=== PATIENT | male | born 1965 | race Caucasian/White ===

== ENCOUNTER 2017-01-23 14:25 | Inpatient (IN) | payer SELFPAY ==
[~2017-01-23] VITALS: Ht 165.1 cm; Wt 62.3 kg
[2017-01-23] MEDS ORDERED: ONDANSETRON HCL 4MG/2ML VIAL IV STA (15:50)
[2017-01-23] MEDS ORDERED: FAMOTIDINE 20MG/2ML VIAL IV ONE (16:00)
[2017-01-23 16:19] LABS: BASOPHILS % 1.1 % (0.0-2.0); DIFFERENTIAL COMMENT 1; EOSINOPHILS % 1.1 % (0.0-5.0); LYMPHOCYTES % 10.8 % (20.0-50.0); MEAN CORPUSCULAR HEMOGLOBIN 18.3 pg (28.0-32.0); MEAN CORPUSCULAR HGB CONC 29.6 g/dL (31.0-37.0); MEAN CORPUSCULAR VOLUME 61.6 fL (80.0-94.0); MEAN PLATELET VOLUME 9.5 fl (7.4-10.4); MONOCYTES % 11.3 % (2.0-8.0); NEUTROPHILS % 75.7 % (40.0-76.0); PLATELET 96 x1000/uL (130-400); RED BLOOD CELL COUNT 1.93 mill/uL (4.7-6.1); RED CELL DISTRIBUTION WIDTH 25.2 % (11.6-14.6)
[2017-01-23 16:21] LABS: ADD RBC MORPHOLOGY YES; HEMATOCRIT. 11.9 % (42.0-52.0); HEMOGLOBIN. 3.5 g/dL (14.0-18.0)
[2017-01-23 16:28] LABS: CLARITY URINE CLEAR (CLEAR); COLOR URINE ORANGE (YELLOW); GLUCOSE URINE NEGATIVE (NEGATIVE); KETONES URINE NEGATIVE (NEGATIVE); LEUKOCYTE ESTERASE URINE NEGATIVE (NEGATIVE); NITRITE URINE NEGATIVE (NEGATIVE); OCCULT BLOOD URINE NEGATIVE (NEGATIVE); PH URINE 7.5 (4.5-8.0); PROTEIN URINE NEGATIVE (NEGATIVE); SPECIFIC GRAVITY URINE 1.012 (1.005-1.030)
[2017-01-23 16:33] LABS: ALANINE AMINOTRANSFERASE 31 IU/L (13-61); ALBUMIN 2.8 g/dL (3.4-5.0); ANION GAP 11; CALCIUM 8.1 mg/dL (8.5-10.1); CARBON DIOXIDE 24 mEq/L (21-32); CHLORIDE 106 mEq/L (98-107); ETHANOL BLOOD < 10 mg/dL; INDEX HEMOLYSI 1 (1-3); INDEX ICTERIC 1 (1-4); INDEX LIPEMIC 1 (1-3); LIPASE 191 IU/L (73-393); UREA NITROGEN BLOOD 14 mg/dL (7-21); eGFR > 60 mL/min (>60)
[2017-01-23 16:47] LABS: ANISOCYTOSIS 3+
[2017-01-23 16:49] LABS: HYPOCHROMASIA 3+; PLATELET ESTIMATE SLIGHTLY DECREASED
[2017-01-23 16:54] LABS: *AMPHETAMINES SCREEN URINE NEGATIVE (NEGATIVE); *BARBITURATES SCREEN URINE NEGATIVE (NEGATIVE); *BENZODIAZEPINES SCREEN URINE NEGATIVE (NEGATIVE); *COCAINE SCREEN URINE NEGATIVE (NEGATIVE); CANNABINOID URINE SCREEN NEGATIVE (NEGATIVE); ECSTASY MDMA SCREEN URINE NEGATIVE (NEGATIVE); METHADONE URINE SCREEN NEGATIVE (NEGATIVE); OPIATES URINE SCREEN NEGATIVE (NEGATIVE); PHENCYCLIDINE URINE SCREEN NEGATIVE (NEGATIVE)
[2017-01-23 20:22] VITALS: BP 135/68
[2017-01-23 20:26] VITALS: BP 135/68
[2017-01-23 22:00] VITALS: BP 128/73
[2017-01-23 22:39] VITALS: BP 128/73
[2017-01-23 22:55] VITALS: BP 122/66
[2017-01-23 23:52] VITALS: BP 126/66
[2017-01-23] MEDS: PANTOPRAZOLE 80 MG in SODIUM CHLORIDE 0.9% 100 ML IV SCH (23:55)
[2017-01-24] VITALS (21 sets, daily range): BP systolic 116–136; BP diastolic 57–78
[2017-01-24 06:59] LABS: HEMATOCRIT 22.1 % (42.0-52.0); MEAN CORPUSCULAR HEMOGLOBIN 22.4 pg (28.0-32.0); MEAN CORPUSCULAR HGB CONC 31.7 g/dL (31.0-37.0); MEAN CORPUSCULAR VOLUME 70.6 fL (80.0-94.0); PLATELET 87 x1000/uL (130-400); RED BLOOD CELL COUNT 3.13 mill/uL (4.7-6.1); RED CELL DISTRIBUTION WIDTH 29.5 % (11.6-14.6); WHITE BLOOD COUNT 8.8 x1000/uL (4.5-11.0)
[2017-01-24 07:48] LABS: ANION GAP 11; CALCIUM 8.4 mg/dL (8.5-10.1); CARBON DIOXIDE 24 mEq/L (21-32); CHLORIDE 106 mEq/L (98-107); INDEX HEMOLYSI 1 (1-3); INDEX ICTERIC 1 (1-4); INDEX LIPEMIC 1 (1-3); UREA NITROGEN BLOOD 10 mg/dL (7-21); eGFR > 60 mL/min (>60)
[2017-01-24] MEDS: PANTOPRAZOLE 80 MG in SODIUM CHLORIDE 0.9% 100 ML IV SCH ×2 (08:17→19:57)
[2017-01-24] MEDS ORDERED: SODIUM CHLORIDE 0.9% 10ML VIAL ONE (11:14)
[2017-01-24] MEDS ORDERED: SIMETHICONE 40 MG/0.6 ML 30ML ONE ×2 (11:14→13:38)
[2017-01-24 11:55] LABS: INDEX HEMOLYSI 1 (1-3); INDEX ICTERIC 1 (1-4); INDEX LIPEMIC 1 (1-3); IRON 23 ug/dL (50-175); TOTAL IRON BINDING CAPACITY 417 ug/dL (250-450)
[2017-01-24] MEDS ORDERED: MIDAZOLAM HCL 5 MG/5 ML VIAL ONE (13:38)
[2017-01-24] MEDS ORDERED: FENTANYL CITRATE/PF 50MCG/ML 2ML VIAL ONE (13:38)
[2017-01-24] MEDS ORDERED: MIDAZOLAM HCL 5 MG/5 ML VIAL IV PRN (14:12)
[2017-01-24] MEDS ORDERED: FENTANYL CITRATE/PF 50MCG/ML 2ML VIAL IV PRN (14:12)
[2017-01-24] MEDS ORDERED: SORBITOL 70% SOLN 30ML PO NR (18:00)
[2017-01-24 18:03] LABS: FOLIC ACID (FOLATE) SERUM 19.8 ng/mL (>5.38)
[2017-01-25] VITALS (19 sets, daily range): BP systolic 101–136; BP diastolic 49–75
[2017-01-25] MEDS: PANTOPRAZOLE 80 MG in SODIUM CHLORIDE 0.9% 100 ML IV SCH (05:52)
[2017-01-25] MEDS ORDERED: SORBITOL 70% SOLN 30ML PO NR (06:00)
[2017-01-25] MEDS ORDERED: PROT40 PO (07:29)
[2017-01-25 08:31] LABS: BASOPHILS % 0.9 % (0.0-2.0); EOSINOPHILS % 2.3 % (0.0-5.0); HEMATOCRIT. 31.4 % (42.0-52.0); LYMPHOCYTES % 7.9 % (20.0-50.0); MEAN CORPUSCULAR HEMOGLOBIN 23.2 pg (28.0-32.0); MEAN CORPUSCULAR HGB CONC 31.2 g/dL (31.0-37.0); MEAN CORPUSCULAR VOLUME 74.2 fL (80.0-94.0); MEAN PLATELET VOLUME 10.2 fl (7.4-10.4); MONOCYTES % 9.2 % (2.0-8.0); NEUTROPHILS % 79.7 % (40.0-76.0); PLATELET 110 x1000/uL (130-400); RED BLOOD CELL COUNT 4.22 mill/uL (4.7-6.1); RED CELL DISTRIBUTION WIDTH 27.2 % (11.6-14.6); WHITE BLOOD COUNT 9.3 x1000/uL (4.5-11.0)
[2017-01-25 08:39] LABS: DIFFERENTIAL COMMENT 1
[2017-01-25 08:40] LABS: ADD RBC MORPHOLOGY YES; HEMOGLOBIN. 9.8 g/dL (14.0-18.0)
[2017-01-25 09:02] LABS: ALANINE AMINOTRANSFERASE 56 IU/L (13-61); ALBUMIN 3.3 g/dL (3.4-5.0); ANION GAP 14; CALCIUM 8.6 mg/dL (8.5-10.1); CARBON DIOXIDE 25 mEq/L (21-32); CHLORIDE 104 mEq/L (98-107); INDEX HEMOLYSI 1 (1-3); INDEX ICTERIC 1 (1-4); INDEX LIPEMIC 1 (1-3); UREA NITROGEN BLOOD 10 mg/dL (7-21); eGFR > 60 mL/min (>60)
[2017-01-25 13:08] LABS: ANISOCYTOSIS 2+; GIANT PLATELETS 1+; HYPOCHROMASIA 1+; PLATELET ESTIMATE SLIGHTLY DECREASED
[2017-01-25] MEDS ORDERED: SODIUM CHLORIDE 0.9% 10ML VIAL ONE (14:48)
[2017-01-25] MEDS ORDERED: FENTANYL CITRATE/PF 50MCG/ML 2ML VIAL ONE (15:02)
[2017-01-25] MEDS ORDERED: SIMETHICONE 40 MG/0.6 ML 30ML ONE (15:02)
[2017-01-25] MEDS ORDERED: MIDAZOLAM HCL 5 MG/5 ML VIAL ONE (15:03)
[2017-01-25] MEDS ORDERED: MIDAZOLAM HCL 5 MG/5 ML VIAL IV PRN (15:21)
[2017-01-25] MEDS ORDERED: FENTANYL CITRATE/PF 50MCG/ML 2ML VIAL IV PRN (15:21)
[2017-01-26] VITALS: BP 119/62
[2017-01-26 00:03] VITALS: BP_SYST 101; BP_SYST 144; BP_DIAS 66; BP_DIAS 89
[2017-01-26 02:00] VITALS: BP 154/70
[2017-01-26 04:00] VITALS: BP 144/89
== END 2017-01-26 04:00 | disposition home or self-care (01) | DRG 253 ==
LOC: ER 15:28 → 3WST 17:27
PROVIDERS: ADMIT Family Medicine; ATTEND Family Medicine
PROC: 30233N1 Transfusion of Nonautologous Red Blood Cells into Peripheral Vein, Percutaneous Approach (ICD-10-PCS; 2017-01-23)
PROC: 0DB68ZX Excision of Stomach, Via Natural or Artificial Opening Endoscopic, Diagnostic (ICD-10-PCS; principal; 2017-01-24 14:00)
PROC: 0DBK8ZX Excision of Ascending Colon, Via Natural or Artificial Opening Endoscopic, Diagnostic (ICD-10-PCS; 2017-01-25)
PROC: 0DBP8ZX Excision of Rectum, Via Natural or Artificial Opening Endoscopic, Diagnostic (ICD-10-PCS; 2017-01-25)
DX: K92.0 Hematemesis (principal); E43 Unspecified severe protein-calorie malnutrition; K92.1 Melena; D50.9 Iron deficiency anemia, unspecified; K21.0 Gastro-esophageal reflux disease with esophagitis; K63.5 Polyp of colon; K44.9 Diaphragmatic hernia without obstruction or gangrene; Z68.24 Body mass index [BMI] 24.0-24.9, adult; Z72.89 Other problems related to lifestyle
CPT/HCPCS: 36415; 80048; 80053; 80305; 81003; 82607; 82728; 82746; 83540; 83550; 83690; 85025; 85027; 86677; 86850; 86900; 86920; 88305; 96374; 96375; 99291; A4216; C9113; G0482; J2250; J2405; J3010; J3490; J7050; P9016